=== PATIENT | female | born 1930 | race Caucasian/White ===

== ENCOUNTER 2017-11-15 06:51 | Inpatient (IN) ==
[2017-11-14 11:42] LABS: Basophils # 0.1 10*3/uL (0.0-0.2); Basophils % 1.2 % (0.0-0.8); Eosinophils # 0.1 10*3/uL (0.0-0.87); Eosinophils % 1.2 % (0.00-10.9); Hematocrit 38.2 VOL% (35.7-47.0); Hemoglobin 12.8 GM/DL (12.0-16.0); Immature Granulocytes % 0.6 %; Immature Granulocytes Absolute 0.04 #; Lymphocytes # 2.2 10*3/uL (1.4-4.0); Lymphocytes % 31.7 % (21.3-54.2); Mean Corpuscular HGB Conc 33.5 GM/DL (32-36); Mean Corpuscular Hemoglobin 30 PG (27-34); Mean Corpuscular Volume 90.3 FL (87-102); Mean Platelet Volume 9.7 FL (9.6-12.0); Monocytes # 0.7 10*3/uL (0.11-0.8); Neutrophils # 3.8 10*3/uL (1.4-7.4); Neutrophils % 55.3 % (38.7-73.9); Platelet Count 188 T/CUMM (130-400); Red Blood Count 4.23 MC/CUMM (3.8-5.5); Red Cell Distribution Width 15.3 % (9.3-17.3); White Blood Count 6.9 T/CUMM (4-12)
[2017-11-14 12:11] LABS: Albumin 4.3 G/DL (3.4-5.0); Bilirubin,Total 0.5 MG/DL (0.2-1.0); Calcium 9.4 MG/DL (8.5-10.1); Osmolality,Calculated 264.5 MOS/KG (273-304); Potassium 4.7 MMOL/L (3.5-5.1); Total Protein 6.5 G/DL (6.4-8.3)
[~2017-11-15 06:51] MED LIST: ceFAZolin 1,000 MG in SYRINGE 1 EACH IV ONE
[2017-11-15] MEDS ORDERED: HEPARIN 5,000 UNIT/1 ML VIAL IV ONE (08:55)
[2017-11-15] MEDS ORDERED: MIDAZOLAM 2 MG/2 ML VIAL IV ONE (08:55)
[2017-11-15] MEDS ORDERED: DIAZEPAM 5 MG TABLET PO ONE (08:55)
[2017-11-15] MEDS ORDERED: fentaNYL 100 MCG/2 ML VIAL IV ONE (08:55)
[2017-11-15 09:19] LABS: PT Patient Result 10.7 SECS
[2017-11-15] MEDS ORDERED: ceFAZolin 1,000 MG VIAL ONE (09:21)
[2017-11-15] MEDS ORDERED: DIAZEPAM 5 MG TABLET ONE (09:21)
[2017-11-15] MEDS: SODIUM CHLORIDE 0.45% 1,000 ML IV SCH ×2 (09:27→18:19)
[2017-11-15] MEDS ORDERED: HEPARIN/NACL 0.9% 2 UNITS/ML 2,000 ML IV ONE (12:03)
[2017-11-15] MEDS ORDERED: fentaNYL 100 MCG/2 ML VIAL ONE (12:52)
[2017-11-15] MEDS ORDERED: MIDAZOLAM 2 MG/2 ML VIAL ONE (12:52)
[2017-11-15] MEDS ORDERED: NAPROXEN SODIUM 220 MG PO PRN (13:33)
[2017-11-15] MEDS ORDERED: FUROSEMIDE 40 MG TABLET PO PRN (18:00)
[2017-11-15] MEDS: METOPROLOL TARTRATE 25 MG TABLET PO SCH (21:04)
[2017-11-16] MEDS ORDERED: ceFAZolin 1,000 MG in SYRINGE 1 EACH IV ONE (08:31)
[2017-11-16] MEDS: amLODIPine 5 MG TABLET PO SCH (08:35)
[2017-11-16] MEDS: ASPIRIN EC 81 MG TABLET PO SCH (08:35)
[2017-11-16] MEDS: LEVOTHYROXINE 50 MCG TABLET PO SCH (08:35)
[2017-11-16] MEDS ORDERED: [UNRECOGNIZED DRUG - OTHER] PO SCH (09:00)
[2017-11-16] MEDS ORDERED: IRON PO SCH (09:00)
[2017-11-16] MEDS: SODIUM CHLORIDE 0.45% 1,000 ML IV SCH (09:00)
[2017-11-16] MEDS ORDERED: MULTIVIT MIN PO SCH (09:00)
[2017-11-16] MEDS ORDERED: VITAMIN D3 PO SCH (09:00)
[2017-11-16] MEDS ORDERED: [UNRECOGNIZED DRUG - OTHER] PO SCH (09:00)
[2017-11-16] MEDS ORDERED: CALCIUM CITRATE PO SCH (09:00)
[2017-11-16] MEDS ORDERED: ESOMEPRAZOLE MAGNESIUM 40 MG PO SCH (09:00)
[2017-11-16] MEDS ORDERED: FOLIC PO SCH (09:00)
[2017-11-16] MEDS ORDERED: HEPARIN 5,000 UNIT/1 ML VIAL ONE (09:05)
[2017-11-16] MEDS ORDERED: TISSUE ADHESIVE 1 EACH APPLICATOR TOP ONE (09:05)
[2017-11-16] MEDS ORDERED: BUPIVACAINE 0.5% 50 ML VIAL ONE (09:05)
[2017-11-16] MEDS ORDERED: VANCOMYCIN 500 MG VIAL ONE (09:05)
[2017-11-16] MEDS ORDERED: LIDOCAINE 1% 50 ML VIAL ONE (09:17)
[2017-11-16] MEDS ORDERED: PHENYLEPHRINE DRIP 20 MG/250 ML PREMIX IV ONE (09:21)
[2017-11-16] MEDS ORDERED: fentaNYL 100 MCG/2 ML VIAL ONE (11:59)
[2017-11-16] MEDS ORDERED: ePHEDrine 50 MG/ML AMP ONE (12:00)
[2017-11-16] MEDS ORDERED: THROMBIN TOPICAL (RECOMBINANT) 5,000 UNIT VIAL TOP ONE (12:09)
[2017-11-16] MEDS ORDERED: ROCURONIUM 100 MG/10 ML VIAL IV ONE (12:49)
[2017-11-16] MEDS ORDERED: ETOMIDATE 40 MG/20 ML VIAL IV ONE (12:49)
[2017-11-16] MEDS ORDERED: DESFLURANE 1 UNIT/15 MINUTE INH ONE (12:49)
[2017-11-16] MEDS ORDERED: LABETALOL 100 MG/20 ML VIAL IV ONE (12:49)
[2017-11-16] MEDS ORDERED: ONDANSETRON 4 MG/2 ML VIAL ONE ×2 (12:49→13:18)
[2017-11-16] MEDS ORDERED: HEPARIN 10,000 UNIT/10 ML VIAL ONE (12:49)
[2017-11-16 12:51] LABS: Apearance,Urine CLOUDY (Clear); Bacteria,Urine Many /HPF (Few); Bilirubin,Urine Negative (Negative); Blood, Urine Small mg/dL (Negative); Glucose,Urine (UA) Negative (Negative); Ketones,Urine 5 mg/dL (Negative); Mucus,Urine Many /LPF (Occasional); Nitrite,Urine Negative (Negative); Protein,Urine 100 MG/DL; RBC,Urine 351 /HPF (0-4); Urine Color Yellow (Yellow); Urine Specific Gravity 1.028 (1.001-1.035); Urine Urobilinogen < 2.0 EU/DL (0.2-1.0); WBC,Urine 20389 /HPF (0-6)
[2017-11-16 13:03] LABS: Hematocrit 35.3 VOL% (35.7-47.0); Hemoglobin 11.9 GM/DL (12.0-16.0)
[2017-11-16] MEDS: ONDANSETRON 4 MG/2 ML VIAL IV PRN (13:20)
[2017-11-16] MEDS: LACTATED RINGERS 1,000 ML IV SCH ×2 (13:40→23:40)
[2017-11-16] MEDS: CIPROFLOXACIN 500 MG TABLET PO SCH (20:12)
[2017-11-16] MEDS: METOPROLOL TARTRATE 25 MG TABLET PO SCH (20:12)
[2017-11-16] MEDS: HYDROmorphone 2 MG/1 ML VIAL IV PRN (21:39)
[2017-11-17 05:14] LABS: Hemoglobin 10.2 GM/DL (12.0-16.0)
[2017-11-17 05:31] LABS: Calcium 7.9 MG/DL (8.5-10.1); Osmolality,Calculated 265.5 MOS/KG (273-304); Potassium 3.5 MMOL/L (3.5-5.1)
[2017-11-17] MEDS ORDERED: ASPIRIN CHEW 81 MG TABLET PO SCH (09:00)
[2017-11-17] MEDS: CIPROFLOXACIN 500 MG TABLET PO SCH ×2 (10:06→20:16)
[2017-11-17] MEDS: CLOPIDOGREL 75 MG TABLET PO SCH (10:06)
[2017-11-17] MEDS: amLODIPine 5 MG TABLET PO SCH (10:06)
[2017-11-17] MEDS: ASPIRIN EC 81 MG TABLET PO SCH (10:07)
[2017-11-17] MEDS: LEVOTHYROXINE 50 MCG TABLET PO SCH (10:07)
[2017-11-17] MEDS: LACTATED RINGERS 1,000 ML IV SCH (14:22)
[2017-11-17 17:19] LABS: CKMB % 5.7 %; Troponin I Only 0.291 NG/ML (0.00-0.045)
[2017-11-17] MEDS ORDERED: cefTRIAXone 1,000 MG VIAL IM SCH (18:00)
[2017-11-17] MEDS ORDERED: FUROSEMIDE 40 MG/4 ML VIAL IV ONE (18:03)
[2017-11-17] MEDS: cefTRIAXone 1,000 MG in SODIUM CHLORIDE 0.9% 100 ML IV SCH (18:39)
[2017-11-17] MEDS ORDERED: ENOXAPARIN 60 MG/0.6 ML SYRINGE SUBCUT ONE (19:00)
[2017-11-17] MEDS: ALBUTEROL/IPRATROPIUM 3 ML NEB RESP TX SCH (19:46)
[2017-11-17] MEDS: METOPROLOL TARTRATE 25 MG TABLET PO SCH (20:16)
[2017-11-18] MEDS: ALBUTEROL/IPRATROPIUM 3 ML NEB RESP TX SCH ×4 (00:32→19:46)
[2017-11-18] MEDS: NITROGLYCERIN 2% OINT 1 INCH/GM PACK TOP SCH ×4 (00:39→18:28)
[2017-11-18 00:41] LABS: Hematocrit 29.3 VOL% (35.7-47.0)
[2017-11-18] MEDS: CLOPIDOGREL 75 MG TABLET PO SCH (09:21)
[2017-11-18] MEDS: LEVOTHYROXINE 50 MCG TABLET PO SCH (09:21)
[2017-11-18] MEDS: amLODIPine 5 MG TABLET PO SCH (09:21)
[2017-11-18] MEDS: CIPROFLOXACIN 500 MG TABLET PO SCH ×2 (09:21→20:36)
[2017-11-18] MEDS: ASPIRIN EC 81 MG TABLET PO SCH (09:21)
[2017-11-18] MEDS: cefTRIAXone 1,000 MG in SODIUM CHLORIDE 0.9% 100 ML IV SCH (18:28)
[2017-11-18] MEDS: METOPROLOL TARTRATE 25 MG TABLET PO SCH (20:35)
[2017-11-18] MEDS: HYDROmorphone 2 MG/1 ML VIAL IV PRN (20:36)
[2017-11-19] MEDS: ALBUTEROL/IPRATROPIUM 3 ML NEB RESP TX SCH ×4 (00:39→19:10)
[2017-11-19] MEDS: NITROGLYCERIN 2% OINT 1 INCH/GM PACK TOP SCH ×2 (00:49→05:37)
[2017-11-19] MEDS: ONDANSETRON 4 MG/2 ML VIAL IV PRN (08:55)
[2017-11-19] MEDS: ASPIRIN EC 81 MG TABLET PO SCH (09:00)
[2017-11-19] MEDS: CIPROFLOXACIN 500 MG TABLET PO SCH ×2 (09:00→21:21)
[2017-11-19] MEDS: LEVOTHYROXINE 50 MCG TABLET PO SCH (09:00)
[2017-11-19] MEDS: CLOPIDOGREL 75 MG TABLET PO SCH (09:00)
[2017-11-19] MEDS: amLODIPine 5 MG TABLET PO SCH (09:51)
[2017-11-19] MEDS ORDERED: NAPROXEN 250 MG TABLET PO PRN (11:00)
[2017-11-19] MEDS: HYDROmorphone 2 MG/1 ML VIAL IV PRN (14:31)
[2017-11-19] MEDS: ISOSORBIDE MONONITRATE 30 MG TABLET PO SCH (17:37)
[2017-11-19] MEDS: EZETIMIBE 10 MG TABLET PO SCH (17:37)
[2017-11-19] MEDS: cefTRIAXone 1,000 MG in SODIUM CHLORIDE 0.9% 100 ML IV SCH (19:15)
[2017-11-20] MEDS: METOPROLOL TARTRATE 25 MG TABLET PO SCH ×2 (00:28→20:38)
[2017-11-20] MEDS: ALBUTEROL/IPRATROPIUM 3 ML NEB RESP TX SCH ×4 (01:34→20:13)
[2017-11-20 06:04] LABS: Troponin I Only 0.069 NG/ML (0.00-0.045)
[2017-11-20] MEDS: MULTIVITAMIN (CENTRUM) TABLET PO SCH (08:56)
[2017-11-20] MEDS: CIPROFLOXACIN 500 MG TABLET PO SCH ×2 (08:56→20:30)
[2017-11-20] MEDS: ASPIRIN EC 81 MG TABLET PO SCH (08:56)
[2017-11-20] MEDS: CALCIUM (CITRATE)/VITAMIN D 200 MG-125 UNIT TABLET PO SCH (08:56)
[2017-11-20] MEDS: ISOSORBIDE MONONITRATE 30 MG TABLET PO SCH (08:57)
[2017-11-20] MEDS: MULTIVITAMIN (OCUVITE) TABLET PO SCH (08:57)
[2017-11-20] MEDS: LISINOPRIL 5 MG TABLET PO SCH (08:57)
[2017-11-20] MEDS: CLOPIDOGREL 75 MG TABLET PO SCH (08:57)
[2017-11-20] MEDS: PANTOPRAZOLE 40 MG TABLET PO SCH (08:57)
[2017-11-20] MEDS: LEVOTHYROXINE 50 MCG TABLET PO SCH (08:58)
[2017-11-20] MEDS: EZETIMIBE 10 MG TABLET PO SCH (08:58)
[2017-11-20] MEDS: cefTRIAXone 1,000 MG in SODIUM CHLORIDE 0.9% 100 ML IV SCH (18:15)
[2017-11-21] MEDS: ALBUTEROL/IPRATROPIUM 3 ML NEB RESP TX SCH ×4 (00:20→19:51)
[2017-11-21 06:16] LABS: Calcium 8.3 MG/DL (8.5-10.1); Osmolality,Calculated 281.4 MOS/KG (273-304); Potassium 3.7 MMOL/L (3.5-5.1)
[2017-11-21] MEDS: MULTIVITAMIN (CENTRUM) TABLET PO SCH (08:52)
[2017-11-21] MEDS: CALCIUM (CITRATE)/VITAMIN D 200 MG-125 UNIT TABLET PO SCH (08:53)
[2017-11-21] MEDS: ASPIRIN EC 81 MG TABLET PO SCH (08:53)
[2017-11-21] MEDS: CLOPIDOGREL 75 MG TABLET PO SCH (08:53)
[2017-11-21] MEDS: LEVOTHYROXINE 50 MCG TABLET PO SCH (08:53)
[2017-11-21] MEDS: CIPROFLOXACIN 500 MG TABLET PO SCH ×2 (08:53→20:43)
[2017-11-21] MEDS: LISINOPRIL 5 MG TABLET PO SCH (08:54)
[2017-11-21] MEDS: PANTOPRAZOLE 40 MG TABLET PO SCH (08:54)
[2017-11-21] MEDS: ISOSORBIDE MONONITRATE 30 MG TABLET PO SCH (08:54)
[2017-11-21] MEDS: EZETIMIBE 10 MG TABLET PO SCH (08:55)
[2017-11-21] MEDS: MULTIVITAMIN (OCUVITE) TABLET PO SCH (08:55)
[2017-11-21] MEDS ORDERED: MAGNESIUM HYDROXIDE SUSP 30 ML UDCUP PO PRN (15:30)
[2017-11-21] MEDS ORDERED: BISACODYL 5 MG TABLET ONE (15:33)
[2017-11-21] MEDS: BISACODYL 5 MG TABLET PO PRN (15:50)
[2017-11-21] MEDS: cefTRIAXone 1,000 MG in SODIUM CHLORIDE 0.9% 100 ML IV SCH (17:30)
[2017-11-21] MEDS: METOPROLOL TARTRATE 25 MG TABLET PO SCH (20:42)
[2017-11-22] MEDS: ALBUTEROL/IPRATROPIUM 3 ML NEB RESP TX SCH ×2 (01:12→07:50)
[2017-11-22] MEDS: BISACODYL 5 MG TABLET PO PRN (06:56)
[2017-11-22] MEDS ORDERED: BISACODYL 10 MG SUPP RECTAL PRN (07:42)
[2017-11-22] MEDS ORDERED: FUROSEMIDE 40 MG TABLET PO SCH (09:00)
[2017-11-22] MEDS: EZETIMIBE 10 MG TABLET PO SCH (09:04)
[2017-11-22] MEDS: MULTIVITAMIN (OCUVITE) TABLET PO SCH (09:04)
[2017-11-22] MEDS: CIPROFLOXACIN 500 MG TABLET PO SCH (09:04)
[2017-11-22] MEDS: MULTIVITAMIN (CENTRUM) TABLET PO SCH (09:04)
[2017-11-22] MEDS: CALCIUM (CITRATE)/VITAMIN D 200 MG-125 UNIT TABLET PO SCH (09:05)
[2017-11-22] MEDS: ISOSORBIDE MONONITRATE 30 MG TABLET PO SCH (09:05)
[2017-11-22] MEDS: LEVOTHYROXINE 50 MCG TABLET PO SCH (09:05)
[2017-11-22] MEDS: ASPIRIN EC 81 MG TABLET PO SCH (09:05)
[2017-11-22] MEDS: CLOPIDOGREL 75 MG TABLET PO SCH (09:06)
[2017-11-22] MEDS: LISINOPRIL 5 MG TABLET PO SCH (09:06)
[2017-11-22] MEDS: PANTOPRAZOLE 40 MG TABLET PO SCH (09:06)
[2017-11-22 11:15] VITALS: BP 117/68
== END 2017-11-22 12:50 | disposition swing bed (61) | DRG 253 ==
LOC: N.RAD 06:51 → N.SDSINP 06:52 → N.3E 14:02
PROVIDERS: ADMIT Surgery; ATTEND Surgery